=== PATIENT | male | born 1935 | race Two or more races ===

== ENCOUNTER 2019-05-21 12:11 | Outpatient (CLI) | payer OTHER ==
[~2019-05-21] VITALS: Ht 152.4 cm; Wt 56.7 kg
== END 2019-05-21 15:20 | disposition home or self-care (01) ==
LOC: OFIC 805 12:11
DX: H90.3 Sensorineural hearing loss, bilateral (principal); H60.8X3 Other otitis externa, bilateral; H61.23 Impacted cerumen, bilateral

== ENCOUNTER 2019-06-09 09:21 | Outpatient (CLI) | payer OTHER | END 2019-06-09 09:34 | disposition home or self-care (01) | LOC: LAB 09:21 | DX: H90.5 Unspecified sensorineural hearing loss (principal); H90.6 Mixed conductive and sensorineural hearing loss, bilateral; H90.3 Sensorineural hearing loss, bilateral; S72.001A Fracture of unspecified part of neck of right femur, initial encounter for closed fracture; I10 Essential (primary) hypertension; M54.5 Low back pain; Z01.810 Encounter for preprocedural cardiovascular examination; E03.8 Other specified hypothyroidism; M50.00 Cervical disc disorder with myelopathy, unspecified cervical region; Z13.820 Encounter for screening for osteoporosis; N41.0 Acute prostatitis; M43.16 Spondylolisthesis, lumbar region; I70.0 Atherosclerosis of aorta; F39 Unspecified mood [affective] disorder; M51.87 Other intervertebral disc disorders, lumbosacral region; E55.9 Vitamin D deficiency, unspecified ==

== ENCOUNTER 2019-06-10 16:14 | Outpatient (CLI) | payer OTHER | END 2019-06-10 16:20 | disposition home or self-care (01) | LOC: LAB 16:14 | DX: H90.5 Unspecified sensorineural hearing loss (principal); H90.6 Mixed conductive and sensorineural hearing loss, bilateral; H90.3 Sensorineural hearing loss, bilateral; S72.001A Fracture of unspecified part of neck of right femur, initial encounter for closed fracture; I10 Essential (primary) hypertension; M54.5 Low back pain; Z01.810 Encounter for preprocedural cardiovascular examination; E03.8 Other specified hypothyroidism; M50.00 Cervical disc disorder with myelopathy, unspecified cervical region; Z13.820 Encounter for screening for osteoporosis; N41.0 Acute prostatitis; M43.16 Spondylolisthesis, lumbar region; I70.0 Atherosclerosis of aorta; F39 Unspecified mood [affective] disorder; M51.87 Other intervertebral disc disorders, lumbosacral region; E55.9 Vitamin D deficiency, unspecified ==

== ENCOUNTER 2019-07-23 11:05 | Outpatient (CLI) | payer OTHER ==
[~2019-07-23] VITALS: Ht 152.4 cm; Wt 56.7 kg
== END 2019-07-23 11:25 | disposition home or self-care (01) ==
LOC: OFIC 805 11:05
DX: H90.3 Sensorineural hearing loss, bilateral (principal); H61.23 Impacted cerumen, bilateral

== ENCOUNTER 2019-07-28 18:13 | Emergency (ER) | payer OTHER ==
[~2019-07-28] VITALS: Ht 167.6 cm; Wt 72.6 kg
== END 2019-07-28 19:57 | disposition home or self-care (01) ==
LOC: ER 18:13
DX: M54.2 Cervicalgia (principal); M62.838 Other muscle spasm; M47.892 Other spondylosis, cervical region

== ENCOUNTER 2021-09-29 14:41 | Emergency (ER) | payer OTHER ==
[~2021-09-29] VITALS: Ht 162.6 cm; Wt 77.1 kg
[2021-09-29] MEDS ORDERED: AZITHROMYCIN250 MG (15:15)
[2021-09-29] MEDS ORDERED: NAPROXEN375 MG PO (15:15)
[2021-09-29] MEDS ORDERED: DICLOFENAC35 MG PO (15:16)
[2021-09-29] MEDS ORDERED: NORFLEX100MG PO (16:40)
== END 2021-09-29 16:47 | disposition home or self-care (01) ==
LOC: ER 14:41
DX: M54.2 Cervicalgia (principal); M54.59 Other low back pain

== ENCOUNTER 2021-10-01 13:32 | Outpatient (CLI) | payer OTHER ==
[~2021-10-01 13:32] MED LIST: AZITHROMYCIN250 MG; DICLOFENAC35 MG PO; NAPROXEN375 MG PO; NORFLEX100MG PO
== END 2021-10-01 13:36 | disposition home or self-care (01) ==
LOC: RAD 13:32
PROVIDERS: ATTEND Physical Medicine & Rehabilitation
DX: M54.59 Other low back pain (principal)

== ENCOUNTER → 2021-10-22 | Emergency (ER) | payer OTHER ==
[~2021-10-22] VITALS: Ht 170.2 cm; Wt 77.1 kg
[~2021-10-22] MED LIST changes: +BACLOFEN10 MG PO; +GABAPENTIN400 MG PO
== END ==
LOC: ER 19:43
DX: Z53.21 Procedure and treatment not carried out due to patient leaving prior to being seen by health care provider (principal)

== ENCOUNTER 2021-11-14 14:55 | Emergency (ER) | payer OTHER ==
[~2021-11-14] VITALS: Ht 167.6 cm; Wt 77.1 kg
[~2021-11-14 14:55] MED LIST changes: -BACLOFEN10 MG PO; -GABAPENTIN400 MG PO
[2021-11-14] MEDS ORDERED: GABAPENTIN400 MG PO (15:18)
[2021-11-14] MEDS ORDERED: BACLOFEN10 MG PO (15:18)
== END 2021-11-14 18:58 | disposition home or self-care (01) ==
LOC: ER 14:55
DX: S20.224A Contusion of middle back wall of thorax, initial encounter (principal); W18.30XA Fall on same level, unspecified, initial encounter; Y93.9 Activity, unspecified; Y92.012 Bathroom of single-family (private) house as the place of occurrence of the external cause

== ENCOUNTER 2021-11-20 12:11 | Emergency (ER) | payer OTHER ==
[~2021-11-20] VITALS: Ht 162.6 cm; Wt 69.4 kg
[~2021-11-20 12:11] MED LIST changes: +BACLOFEN10 MG PO; +GABAPENTIN400 MG PO
== END 2021-11-20 16:44 | disposition home or self-care (01) ==
LOC: ER 12:11
DX: S05.11XA Contusion of eyeball and orbital tissues, right eye, initial encounter (principal); X58.XXXA Exposure to other specified factors, initial encounter; Y93.9 Activity, unspecified; Y92.9 Unspecified place or not applicable

== ENCOUNTER 2021-12-07 15:31 | Emergency (ER) | payer OTHER ==
[~2021-12-07] VITALS: Ht 170.2 cm; Wt 70.3 kg
== END 2021-12-07 20:27 | disposition home or self-care (01) ==
LOC: ER 15:31
DX: M54.2 Cervicalgia (principal); I10 Essential (primary) hypertension

== ENCOUNTER 2022-01-08 12:32 | Emergency (ER) | payer OTHER ==
[~2022-01-08] VITALS: Ht 167.6 cm; Wt 59.0 kg
[2022-01-08] MEDS ORDERED: GRALISE600 MG PO (13:55)
[2022-01-08] MEDS ORDERED: BACLOFEN20 MG PO (13:55)
== END 2022-01-08 15:04 | disposition home or self-care (01) ==
LOC: ER 12:32
DX: S30.0XXA Contusion of lower back and pelvis, initial encounter (principal); W18.39XA Other fall on same level, initial encounter; Y93.9 Activity, unspecified; Y92.488 Other paved roadways as the place of occurrence of the external cause; Y99.9 Unspecified external cause status; I10 Essential (primary) hypertension; M19.90 Unspecified osteoarthritis, unspecified site; F03.90 Unspecified dementia, unspecified severity, without behavioral disturbance, psychotic disturbance, mood disturbance, and anxiety